=== PATIENT | female | born 1990 | race Caucasian/White ===

== ENCOUNTER 2020-06-03 13:27 | Inpatient (IN) | payer OTHER, SELFPAY ==
[2020-06-03 13:29] VITALS: BP 115/71; PULSE 79; RESP 18; TEMP 36.8; O2SAT 97; BMI 24.0
--- NOTE | 2020-06-03 13:47 | ED.VIS.GEN ---
History of Present Illness Chief Complaint: Mental Health Informant: Patient, Family Narrative: Patient presenting wanting detox from fentanyl. She uses it daily, snorts it, no IV drug use. In the mornings, when she has been without the drug, she experiences fairly severe withdrawal symptoms, nausea, vomiting, diarrhea, abdominal cramping, yawning. She last used about an hour ago and so does not feel the symptoms now, but she states she feels anxious and very nervous about detox, though she does indeed want it. She made a comment about wanting to on the way here according to the family member that accompanies her, however they both agree that she is not suicidal, she is not been having thoughts of suicide, and states that she said that because she has been very stressed and is nervous about this, but does not want to . She states that she started taking Percocet after a , and became addicted to them. She was on Suboxone for period of time, she stopped taking it, which is what made her relapse into taking fentanyl which she has been doing daily for at least 2 or 3 months. No recent illness except for a minor nonproductive cough that she has had for about 3 weeks. - Past Medical History (1) Seizure disorder Status: Chronic Past Medical History - Allergies and Home Meds Allergies/Adverse Reactions: Allergies codeine phosphate [From Tylenol-Codeine #3] Allergy (Verified 06/03/20 13:29) Hives Primary Care Physician: Care Physician,No Primary [Primary Care Provider] - Lives: Alone Smoking Status: Never smoker Alcohol: Occasional - none recent Drugs: - - fentanyl. no IVDU. Review of Systems General: Denies: Chills, Fever, Sweats Eyes: Denies: Visual changes - bilaterally, Diplopia ENT: Denies: Rhinorrhea, Sore throat Cardiovascular: Denies: Chest pain, Palpitations Respiratory: Denies: Dyspnea, Cough, Dyspnea on exertion Gastrointestinal: Denies: Abdominal pain, Nausea, Vomiting, Diarrhea, Melena, Hematochezia Genitourinary: Denies: Dysuria, Hematuria, Frequency Musculoskeletal: Denies: Back pain, Extremity Pain Skin: Denies: Rash, Wounds Neurological: Denies: Headache, Weakness, Numbness Psych: Reports: Anxiety. Denies: Suicidal thoughts Physical Exam Vital Signs/Narrative: Vital Signs Temp Pulse Resp BP Pulse Ox 06/03/20 13:29 98.2 F 79 18 115/71 97 Inital Vital Signs reviewed: Yes General: Well nourished, Well developed, No Acute Distress Head: Normocephalic, Atraumatic Eyes: Perrl, EOMI ENT: Moist mucous membranes, No rhinorrhea Neck: Supple, Nontender Cardiovascular: Regular rate, Regular rhythm, No murmurs. Negative for: Tachycardia Respiratory: No distress, CTA bilaterally, Chest nontender Abdomen: Soft, Nontender, Nondistended, Normal bowel sounds Back: Nontender, Normal Inspection Extremities: Nontender, No edema Skin: Normal color, No rash, No Trauma Neurological: Alert, Oriented x3, Cranial nerves II-XII grossly intact, Normal Strength, Normal Sensation, Normal Gait Psychological: Normal affect, Tearful Diagnostic/Tx/Re-eval Laboratory Results 06/03/20 06/03/20 06/03/20 13:48 13:48 13:48 WBC 8.1 RBC 5.11 Hgb 15.3 H Hct 45.5 MCV 89.0 MCH 29.9 MCHC 33.6 RDW Std Deviation 41.2 RDW Coeff of Fredy 12.7 Plt Count 168 MPV 13.1 H Immature Gran % (Auto) 0.200 Neut % (Auto) 59.6 Lymph % (Auto) 30.4 [place] % (Auto) 7.8 Eos % (Auto) 1.5 Baso % (Auto) 0.5 Absolute Neuts (auto) 4.8 Absolute Lymphs (auto) 2.45 Nucleated RBC % 0 Sodium 138 Potassium 3.6 Chloride 104 Carbon Dioxide 26.0 Anion Gap 8 BUN 8 Creatinine 0.86 Estim Creat Clear Calc 76.34 Est GFR (MDRD) Af Amer 100 Est GFR (MDRD) Non-Af 83 BUN/Creatinine Ratio 9.3 L Glucose 183 H Calcium 9.4 Total Bilirubin 0.60 AST 11 L ALT 26 Alkaline Phosphatase 97 Total Protein 8.2 Albumin 4.1 Globulin 4.1 Albumin/Globulin Ratio 1.0 Urine Opiates Screen NEGATIVE Urine Methadone Screen NEGATIVE Ur Barbiturates Screen NEGATIVE Ur Phencyclidine Scrn NEGATIVE Ur Amphetamines Screen NEGATIVE U Methamphetamin-MDMA NEGATIVE U Benzodiazepines Scrn POSITIVE H Urine Cocaine Screen NEGATIVE U Cannabinoids Screen NEGATIVE Ur Drug Screen Comment - Medical Decision Making Work-up above. Discussed with hospitalist for admission for inpatient detox from opiates. Her toxicology shows benzodiazepines because she is prescribed alprazolam. She does not appear to be abusing that according to her history and that of her family member. ED Disposition - Plan for ED Patient: Disposition: Acute Care Hospital [facility] Diagnosis: Opiate dependence Referrals: Care Physician,No Primary [Primary Care Provider] -
[2020-06-03 14:15] LABS: Amphetamine Urine VISTA NEGATIVE (<1000 ng/mL); Barbiturate Urine VISTA NEGATIVE (< 200 ng/mL); Benzodiazepine Urine VISTA POSITIVE (< 200 ng/mL); Cocaine Urine VISTA NEGATIVE (< 300 ng/mL); Ecstacy Urine VISTA NEGATIVE (< 500 ng/mL); Methadone Urine VISTA NEGATIVE (< 300 ng/mL); PCP Urine VISTA NEGATIVE (< 25 ng/mL); THC Urine VISTA NEGATIVE (< 50 ng/mL); Vista UDS pH Range 7
[2020-06-03 14:16] LABS: Absolute Lymphocyte Count 2.45 X10^3/uL (0.83-4.51); Absolute Neutrophil Count 4.8 X10^3/uL (2.0-7.7); Basophil# 0.04 X10^3/uL; Basophil% 0.5 % (0-1); Eosinophil# 0.12 X10^3/uL; Eosinophils% 1.5 % (0-5); Hematocrit 45.5 % (37-47); Hemoglobin 15.3 g/dL (12.0-15.0); Lymphocyte # 2.45 X10^3/ul (4.0); Lymphocyte % 30.4 % (19-41); Mean Corp Hgb Conc 33.6 g/dL (32-36); Mean Corpuscular Hgb 29.9 pg (27.0-32.0); Mean Platelet Vol. 13.1 fl (6.2-12.0); Monocyte# 0.63 X10^3/uL; Monocyte% 7.8 % (0-10); NRBC Flagged by Analyzer 0 % (0-5); Neutrophil # 4.81 X10^3/uL (2.7-7.7); Neutrophil % 59.6 % (47-70); Platelet Count 168 K/mm3 (150-450); RBC Distribution Width CV 12.7 % (11.6-14.6); RBC Distribution Width SD 41.2 fl (35.1-43.9); Red Blood Count 5.11 M/mm3 (4.2-5.4); White Blood Count 8.1 K/mm3 (4.4-11.0)
[2020-06-03 14:20] LABS: AST(SGOT) 11 U/L (15-37); Alanine Aminotransfer ALT/SGPT 26 U/L (13-56); Albumin, Serum 4.1 g/dL (3.2-5.0); Alkaline Phosphatase 97 U/L (45-117); Anion Gap 8 (5-15); BUN 8 mg/dL (7-18); BUN/Creat Ratio 9.3 RATIO (10-20); Calcium,Total 9.4 mg/dL (8.5-10.1); Chloride 104 mmol/L (98-107); Creatinine, Serum 0.86 mg/dL (0.55-1.02); EST Glomerular Filtration Rate 83 mL/min (>60); Est Glom Filt Rate - Afr Amer 100 mL/min (>60); Estimated Creatinine Clearance 76.34 ml/min; Globulin 4.1 g/dL (2.2-4.2); Glucose 183 mg/dL (74-106); Potassium 3.6 mmol/L (3.5-5.1); Protein, Total 8.2 g/dL (6.4-8.2); Sodium Level 138 mmol/L (136-145)
[2020-06-03 14:28] LABS: Internal QC Validated? YES +Cl - CLEAR BKGD; Pregnancy, Serum, hCG Quali. NEGATIVE Negative
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
[2020-06-03 14:50] VITALS: BP 115/71; PULSE 79; RESP 18; TEMP 36.8; O2SAT 97
[2020-06-03 15:10] VITALS: BP 109/63; PULSE 55; RESP 18; TEMP 37.2; O2SAT 97; BMI 23.4
[2020-06-03 15:17] VITALS: BMI 23.4
[2020-06-03] MEDS: Lactated Ringers 1,000 ML 125 ML IV (15:27)
[2020-06-03] MEDS: cloNIDine HCl 0.1 MG Tablet PO (15:27)
--- NOTE | 2020-06-03 16:54 | CM.ED ---
Social Work Patient was admitted to acute unit prior to this social worker aide being able to complete brief assessment. Telephone call to [facility]Radha Lopez. Updated Radha on patient admission to [facility] program. Radha to see patient tomorrow. Santiago ROMO, GRACIELA
[2020-06-03] MEDS: ALPRAZolam 0.5 MG Tablet PO (16:58)
[2020-06-03] MEDS: Buprenorphine HCl 2 MG TAB.SUBL SL (18:25)
[2020-06-03] MEDS: hydrOXYzine PAM 25 MG Capsule 50 MG PO (19:15)
[2020-06-03] MEDS: Methocarbamol 750 MG Tablet 1500 MG PO (19:15)
[2020-06-03] MEDS: Dicyclomine 10 MG Capsule 20 MG PO (19:15)
[2020-06-03] MEDS: Ibuprofen 600 MG Tablet PO (20:01)
[2020-06-03] MEDS: Gabapentin 300 MG Capsule PO (20:01)
[2020-06-03 20:08] VITALS: BP 92/55; PULSE 67; RESP 20; TEMP 36.5; O2SAT 97
[2020-06-03] MEDS: traZODone 100 MG Tablet PO (20:15)
[2020-06-03 23:46] VITALS: BP 113/76; PULSE 89; RESP 16; TEMP 37; O2SAT 98
[2020-06-04] MEDS: hydrOXYzine PAM 25 MG Capsule 50 MG PO ×2 (02:43→18:10)
[2020-06-04] MEDS: Methocarbamol 750 MG Tablet 1500 MG PO ×3 (02:44→22:22)
[2020-06-04] MEDS: Buprenorphine HCl 2 MG TAB.SUBL SL ×3 (02:44→18:09)
[2020-06-04] MEDS: cloNIDine HCl 0.1 MG Tablet PO ×2 (02:46→22:22)
[2020-06-04 03:00] VITALS: BP 107/66; PULSE 54; RESP 18; TEMP 36.6; O2SAT 96
[2020-06-04 08:00] VITALS: BP 94/57; PULSE 63; RESP 16; TEMP 36.8; O2SAT 98
[2020-06-04 09:12] LABS: Hemoglobin A1c 5.7 % (3.8-5.6)
[2020-06-04] MEDS: Dicyclomine 10 MG Capsule 20 MG PO (09:32)
[2020-06-04] MEDS: ALPRAZolam 0.5 MG Tablet PO ×2 (09:32→22:22)
[2020-06-04] MEDS: Gabapentin 300 MG Capsule PO (09:32)
--- NOTE | 2020-06-04 11:16 | ADDICTION ---
This director of social media marketing met with patient in her room to conduct ASAM, MSE and DUDIT assessments and to complete discharge planning. Patient was alert and oriented x4 and presented with depressed mood and tearful affect. She shared that she has been using Fentanyl on a daily basis for a month and half and was using Percocet prior to Fentanyl use. She states that she administers this substance via insufflation. Patient refused residential recommendation. Patient amiable to Intensive Outpatient treatment at [facility] and is scheduled with this assembly instructions writer on 06/07/2020 at 8:45am to begin services. She is amiable to this recommendation. Hospitalist informed. This assembly instructions writer will fax completed assessments and discharge plan to [facility].
--- NOTE | 2020-06-04 12:09 | ADDICTION ---
This criminal justice social worker met with patient in her room to conduct ASAM, MSE and DUDIT assessments and to complete discharge planning. Patient was alert and oriented x4 and presented with depressed mood and congruent affect. She shared that she has been using Fentanyl on a daily basis. She states that she administers this substance via IV. She reports that she left [facility] program on 06/01/2020 to use because I felt sick. She reports motivation to reengage with [facility]. This medical writer will contact [facility] and submit a referral. She is scheduled for an individual session on 06/08/2020 to potentially admit into Residential Treatment or to work with counselor to identify other Residential options and complete referrals. This medical writer will fax completed assessments and discharge plan to [facility].
[2020-06-04] MEDS: Ibuprofen 600 MG Tablet PO (12:59)
[2020-06-04 15:00] VITALS: BP 114/71; PULSE 80; RESP 18; TEMP 36.9; O2SAT 98
[2020-06-04] MEDS: Acetaminophen/Butalbital/Caffe 1 Tablet PO ×2 (15:23→22:21)
--- NOTE | 2020-06-04 16:36 | PCM.PROGNOTE ---
Patient Problems: Active and Suspected Problems Opiate dependence (Acute) Subjective: Patient was seen and examined today, she was admitted for opiate withdrawal, patient tells me that she has a prescription for Subutex at home and has had it filled, she sees an outside doctor for this prescription. Patient was seen by the social studies department chair for 180 today, she will be set up for follow-up outpatient visits there after she is discharged. Patient has no complaints of any tremor, muscle pain, or nausea and vomiting today. - Physical Exam Vitals/I&O's: Vital Signs Temp Pulse Resp BP Pulse Ox 98.4 F 80 18 114/71 98 06/04/20 15:00 06/04/20 15:00 06/04/20 15:00 06/04/20 15:00 06/04/20 15:00 Oxygen Delivery Method Room Air Weight: 58.105 kg Body Mass Index (BMI) 23.4 Intake and Output for Last 24 Hours 06/02/20 06/03/20 06/04/20 23:59 23:59 23:59 Intake Total 1299 / 20990 / 0 Balance 1299 / 2099 1849 / 0 General: Alert, Oriented x3, Cooperative HEENT: Atraumatic, PERRLA, EOMI, Normocephalic Oral: Moist Mucosa Neck: Supple, No JVD, Negative Carotid Bruits Lungs: Clear to auscultation, Normal air movement, No rhonchi, No wheeze, No rales Cardiovascular: Regular rate, Regular Rhythm, Normal S1, Normal S2, No murmurs, PMI Normal, No rub noted, No Gallop Abdomen: Bowel Sounds Present, Soft, Non Tender, Non-Distended Extremities: No clubbing, No cyanosis, No edema, Capillary Refill Less than 3 Seconds Skin: No rashes, No breakdown Musculoskeletal: No Tenderness to Palpation of Joints or Extremities Neurological: Cranial nerves II-XII grossly intact, Neuro grossly intact, Sensory exam intact to light touch and pain, Coordination normal Psych/Mental Status: Normal Affect, Appropriate, Alert and oriented to time, place, person, mood and affect Laboratory Results 06/03/20 13:48: Hemoglobin A1c 5.7 H Current Medications Acetaminophen (Tylenol) 500 mg PO Q4H PRN PRN PRN Reason: Temp > 100.4 F Acetaminophen/Butalbital/Caffeine (Fioricet) 1 tablet PO Q4H PRN PRN PRN Reason: migrains Last Admin: 06/04/20 15:23 Dose: 1 tablet Documented by: Al Hydroxide/Mg Hydroxide (Mylanta Ii) 30 ml PO Q6H PRN PRN PRN Reason: dyspesia Alprazolam (Xanax) 0.5 mg PO BID PRN PRN PRN Reason: ANXIETY Last Admin: 06/04/20 09:32 Dose: 0.5 mg Documented by: Bisacodyl (Dulcolax) 10 mg RECTAL DAILY PRN PRN Reason: Constipation Buprenorphine HCl (Buprenorphine Hcl) 4 mg SL Q8H JOY; Taper Stop: 06/06/20 17:59 Last Admin: 06/04/20 10:01 Dose: 4 mg Documented by: Clonidine (Catapres) 0.1 mg PO Q8H PRN PRN PRN Reason: RESTLESSNESS Last Admin: 06/04/20 02:46 Dose: 0.1 mg Documented by: Dicyclomine HCl (Bentyl) 20 mg PO Q6H PRN PRN PRN Reason: Abdominal Discomfort Last Admin: 06/04/20 09:32 Dose: 20 mg Documented by: Gabapentin (Neurontin) 300 mg PO Q8H PRN PRN PRN Reason: moderate to severe anxiety Last Admin: 06/04/20 09:32 Dose: 300 mg Documented by: Hydroxyzine Pamoate (Vistaril Pamoate Capsule) 50 mg PO Q6H PRN PRN PRN Reason: mild anxiety Last Admin: 06/04/20 02:43 Dose: 50 mg Documented by: Ibuprofen (Motrin) 600 mg PO Q8H PRN PRN PRN Reason: Pain Score 1-10/10 Last Admin: 06/04/20 12:59 Dose: 600 mg Documented by: Loperamide HCl (Imodium) 2 mg PO Q4H PRN PRN PRN Reason: LOOSE STOOLS Methocarbamol (Methocarbamol) 1,500 mg PO Q6H PRN PRN PRN Reason: MUSCLE SPASM Last Admin: 06/04/20 09:32 Dose: 1,500 mg Documented by: Nicotine (Nicoderm Cq (Pbkc)) 21 mg TRANSDERM. DAILY JOY Last Admin: 06/04/20 09:32 Dose: 21 mg Documented by: Ondansetron HCl (Zofran) 8 mg PO Q8H PRN PRN PRN Reason: NAUSEA Senna (Senokot) 2 tablet PO QHS PRN PRN Reason: Constipation Sodium Chloride () 10 - 40 ml IV UD PRN PRN Reason: SALINE FLUSH Trazodone HCl (Desyrel) 100 mg PO QHS PRN PRN PRN Reason: INSOMNIA Last Admin: 06/03/20 20:15 Dose: 100 mg Documented by: Medical Necessity - Tobacco Use Smoking Status: Current every day smoker Tobacco Use: Vapor Assessment/Plan All Active Problems Opiate dependence (Acute) #1 acute opiate withdrawal-continue present medication #2 chronic opiate addiction #3 seizure disorder-patient is on no medication #4 history of hepatitis C #5 chronic anxiety disorder Inpatient E&M: [id number] [facility] Hosp L2
[2020-06-04 22:16] VITALS: BP 116/65; PULSE 55; RESP 17; TEMP 36.6; O2SAT 95
[2020-06-04] MEDS: traZODone 100 MG Tablet PO (22:22)
[2020-06-04] MEDS: Ondansetron 8 MG Tablet PO (22:40)
[2020-06-05] MEDS: Gabapentin 300 MG Capsule PO (02:11)
[2020-06-05] MEDS: Buprenorphine HCl 2 MG TAB.SUBL SL ×2 (02:12→10:32)
[2020-06-05 02:15] VITALS: BP 114/65; PULSE 72; RESP 17; TEMP 36.8; O2SAT 96
--- NOTE | 2020-06-05 09:38 | DCINST_ITS ---
- Discharge Diagnoses Current Active Problems: Current Active and Chronic Problems Opiate dependence (Acute) You will use the following diet at home:: No restrictions Your food should be the consistency of: Regular Your liquids should be the consistency of: Regular/Thin Discharge Activity: Return to Normal Activity Weight Bearing Status: Full weight bearing Allergies/Adverse Reactions: Allergies codeine phosphate [From Tylenol-Codeine #3] Allergy (Verified 06/03/20 13:29) Hives Medications to take at Discharge ALPRAZolam [Xanax] 0.5 mg PO BID 06/03/20 Buprenorphine HCl 2 mg SL Q8H #0 tab.subl 06/05/20 Primary Care Physician: Care Physician,No Primary [Primary Care Provider] - Test Results: Test results from this visit will be discussed in further detail at your follow- up appointment, if applicable. Please Follow Up With: 180 on Sunday as scheduled
[2020-06-05 10:30] VITALS: BP 127/62; PULSE 71; RESP 16; TEMP 37.1; O2SAT 96
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
--- NOTE | 2020-06-05 11:52 | DS.PCM_ITS ---
Discharge Date and Diagnosis - Problem List Patient Problems: Active and Suspected Problems Opiate dependence (Acute) Date of Admission: 06/03/20 Date of Discharge: 06/05/20 - Primary Discharge Diagnosis Acute Problems: Active Problems #1 acute opiate withdrawal-patient appears stable for discharge home #2 chronic opiate addiction #3 seizure disorder #4 chronic anxiety disorder - Secondary Discharge Diagnosis Chronic Problems: Chronic Problems Seizure disorder (Chronic) Hospital Course and Treatment Operations: None Procedures: None Summary of Care Provided: The patient is a 29 year old F who was seen in the emergency room at [facility] requesting detox services for opiate addiction. Patient's tox screen was only positive for benzodiazepines-she takes Xanax at home for a chronic anxiety disorder. Patient was admitted to [place] [id number] and opiate withd javier order sets were entered on the patient, she talked to 180 and arrange for outpatient follow-up for detox services. Patient revealed that she has Subutex at home that she got from a powder coat painter-this had been prescribed recently for her. On 06/05/2020, patient was seen and examined: On examination she appeared in good health and spirits, she does not appear to be in any distress. Vital signs as documented. Skin warm and dry and without overt rashes. Neck without JVD, thyroid appears normal, trachea is midline, neck is supple. Lungs clear, normal air movement was noted. Heart exam notable for regular rhythm, normal sounds and absence of murmurs, rubs or gallops. Abdomen unremarkable and without evidence of organomegaly, masses, or abdominal aortic enlargement, bowel sounds are present in all 4 quadrants, no abdominal tenderness was noted. Extremities nonedematous, no cyanosis was noted, no clubbing was noted. Neuro: Cranial nerves II through XII are grossly intact, no focal motor deficits were noted, sensation to light touch and pinprick is intact, motor exam 5/5 throughout. Psych: Patient is alert and oriented x3, she does not appear anxious or depressed, she does not appear agitated. Patient appears stable for discharge home on 06/05/2020, she was to continue her home Subutex at one 3 times a day until her follow-up with 180 early next week. Patient Problems: Active and Suspected Problems Opiate dependence (Acute) - Physical Exam Vitals/I&O's: Vital Signs Temp Pulse Resp BP Pulse Ox 98.7 F 71 16 127/62 H 96 06/05/20 10:30 06/05/20 10:30 06/05/20 10:30 06/05/20 10:30 06/05/20 10:30 Oxygen Delivery Method Room Air Weight: 58.105 kg Body Mass Index (BMI) 23.4 Intake and Output for Last 24 Hours 06/03/20 06/04/20 06/05/20 23:59 23:59 23:59 Intake Total 1300 / 2100 2350 / 2350 540 / 540 Balance 1300 / 2100 2350 / 2350 540 / 540 Current Medications Acetaminophen (Tylenol) 500 mg PO Q4H PRN PRN PRN Reason: Temp > 100.4 F Acetaminophen/Butalbital/Caffeine (Fioricet) 1 tablet PO Q4H PRN PRN PRN Reason: migrains Last Admin: 06/04/20 22:21 Dose: 1 tablet Documented by: Al Hydroxide/Mg Hydroxide (Mylanta Ii) 30 ml PO Q6H PRN PRN PRN Reason: dyspesia Alprazolam (Xanax) 0.5 mg PO BID PRN PRN PRN Reason: ANXIETY Last Admin: 06/04/20 22:22 Dose: 0.5 mg Documented by: Bisacodyl (Dulcolax) 10 mg RECTAL DAILY PRN PRN Reason: Constipation Buprenorphine HCl (Buprenorphine Hcl) 2 mg SL Q8H JOY; Taper Stop: 06/06/20 17:59 Last Admin: 06/05/20 10:32 Dose: 2 mg Documented by: Clonidine (Catapres) 0.1 mg PO Q8H PRN PRN PRN Reason: RESTLESSNESS Last Admin: 06/04/20 22:22 Dose: 0.1 mg Documented by: Dicyclomine HCl (Bentyl) 20 mg PO Q6H PRN PRN PRN Reason: Abdominal Discomfort Last Admin: 06/04/20 09:32 Dose: 20 mg Documented by: Gabapentin (Neurontin) 300 mg PO Q8H PRN PRN PRN Reason: moderate to severe anxiety Last Admin: 06/05/20 02:11 Dose: 300 mg Documented by: Hydroxyzine Pamoate (Vistaril Pamoate Capsule) 50 mg PO Q6H PRN PRN PRN Reason: mild anxiety Last Admin: 06/04/20 18:10 Dose: 50 mg Documented by: Ibuprofen (Motrin) 600 mg PO Q8H PRN PRN PRN Reason: Pain Score 1-10/10 Last Admin: 06/04/20 12:59 Dose: 600 mg Documented by: Loperamide HCl (Imodium) 2 mg PO Q4H PRN PRN PRN Reason: LOOSE STOOLS Methocarbamol (Methocarbamol) 1,500 mg PO Q6H PRN PRN PRN Reason: MUSCLE SPASM Last Admin: 06/04/20 22:22 Dose: 1,500 mg Documented by: Nicotine (Nicoderm Cq (Pbkc)) 21 mg TRANSDERM. DAILY JOY Last Admin: 06/05/20 10:32 Dose: Not Given Documented by: Ondansetron HCl (Zofran) 8 mg PO Q8H PRN PRN PRN Reason: NAUSEA Last Admin: 06/04/20 22:40 Dose: 8 mg Documented by: Senna (Senokot) 2 tablet PO QHS PRN PRN Reason: Constipation Sodium Chloride () 10 - 40 ml IV UD PRN PRN Reason: SALINE FLUSH Trazodone HCl (Desyrel) 100 mg PO QHS PRN PRN PRN Reason: INSOMNIA Last Admin: 06/04/20 22:22 Dose: 100 mg Documented by: Discharge Activity: Return to Normal Activity Weight Bearing Status: Full weight bearing Home Medications: Medications to take at Discharge ALPRAZolam [Xanax] 0.5 mg PO BID 06/03/20 Buprenorphine HCl 2 mg SL Q8H #0 tab.subl 06/05/20 Primary Care Physician: Care Physician,No Primary [Primary Care Provider] - Please Follow Up With: 180 on Sunday as scheduled Disposition: Home Minutes spent on discharge:: 31 Patient Condition:: Stable Medical Necessity - Tobacco Use Smoking Status: Current every day smoker Tobacco Use: Vapor Meaningful Use Info Meaningful Use Diagnoses (Choose all that apply): None applicable Inpatient E&M: 87609 Disch Hosp
--- NOTE | 2020-06-05 13:01 | NURSING ---
original plan was for pt to go to her father's house on [place] as her mother currently was granted custody of pt children and so pt could not stay at her home. when mother, Terese, was called with [place] update, she called pt father and apparently he stated he was not able to let pt stay with him. Dr Moore was notified and agreed that pt could stay until Sunday if necessary to set up inpatient treatment with [facility]. pt spoke with her father and he then agreed that she could stay with him, notified and discharge order placed again. pt and mother verbalize understanding with DC plan.
== END 2020-06-05 13:12 | disposition home or self-care (01) | DRG 897 ==
LOC: ED 14:36 → MS3 06-04 07:10
PROVIDERS: Admitting Provider Internal Medicine; Emergency Provider Emergency Medicine; Visit Provider Internal Medicine
DX: F11.23 Opioid dependence with withdrawal (principal); G40.409 Other generalized epilepsy and epileptic syndromes, not intractable, without status epilepticus; F41.9 Anxiety disorder, unspecified; F32.9 Major depressive disorder, single episode, unspecified; B19.20 Unspecified viral hepatitis C without hepatic coma; F17.290 Nicotine dependence, other tobacco product, uncomplicated
CPT/HCPCS: 36415; 80053; 80307; 80320; 83036; 84703; 85025; 85610; 99283; 99406; J7120; G0480

== ENCOUNTER → 2020-09-02 13:19 | Outpatient (CLI) | payer MEDICAID, SELFPAY | PROVIDERS: PCP Nurse Practitioner; Referring Provider Nurse Practitioner; Visit Provider Nurse Practitioner | DX: R00.0 Tachycardia, unspecified (principal) | CPT/HCPCS: 93225; 93226 ==

== ENCOUNTER → 2020-09-03 15:06 | Outpatient (CLI) | payer MEDICAID, SELFPAY ==
--- NOTE | 2020-09-03 15:10 | ECHOD_ITS ---
Reason For Study: TACHYCARDIA Procedure This was a 2D Doppler, Color Flow transthoracic echocardiogram. The study was technically difficult. Exam performed in department. Left Ventricle Normal LV size. Left ventricular systolic function is normal. The estimated ejection fraction is 60 %. No evidence for diastolic dysfunction. No regional wall motion abnormalities noted. Right Ventricle Normal RV size. Normal systolic function. Atria Normal left atrium. Normal right atrium. No doppler evidence for ASD. Mitral Valve There is no mitral annular calcification. Normal mitral valve. Trivial mitral valve insufficiency. Tricuspid Valve Normal tricuspid valve. Trivial tricuspid valve insufficiency. Unable to estimate RV systolic pressure/pulmonary artery pressure due to technically difficult study. Aortic Valve The aortic valve is not well visualized. Pulmonic Valve The pulmonic valve is not well visualized. Trivial pulmonic valve insufficiency. Great Vessels Normal sized aortic root. Pericardium/Pleural No pericardial effusion. MMode/2D Measurements & Calculations LVIDd: 4.7 cm IVSd: 0.62 cm Ao root diam: 3.0 cm LVIDs: 3.2 cm LVPWd: 0.91 cm RVDd: 3.2 cm FS: 33.1 % LAV(MOD-bp): 20.9 ml LA A4 area: 9.5 cm2 LA dimension(2D): 2.6 cm LAV(MOD-bp) Indexed: 12.8 ml/m2 LAV(MOD-sp2): 25.2 ml LAV(MOD-sp4): 17.3 ml RA A4 area: 8.7 cm2 Doppler Measurements & Calculations MV E max salvador: 52.4 cm/sec Lat Peak E' [place]: 12.0 cm/sec Med Peak E' [place]: 10.4 cm/sec MV A max salvador: 66.1 cm/sec E/E' lat: 4.3 E/E' med: 5.0 MV E/A: 0.79 Ao V2 max: 103.8 cm/sec LV V1 max: 80.9 cm/sec PA V2 max: 93.6 cm/sec Ao max P.3 mmHg LV V1 max P.6 mmHg Interpretation Summary The study was technically difficult. Left ventricular systolic function is normal. The estimated ejection fraction is 60 %. Trivial mitral valve insufficiency. Trivial tricuspid valve insufficiency. Trivial pulmonic valve insufficiency. Unable to estimate RV systolic pressure/pulmonary artery pressure due to technically difficult study. No evidence for diastolic dysfunction. Ordering Physician: Ariane Gonzales Referring Physician: Ariane Gonzales Performed By: Ira Toussaint, ARMAND, RVT
== END ==
PROVIDERS: PCP Nurse Practitioner; Referring Provider Nurse Practitioner; Visit Provider Nurse Practitioner
DX: I34.0 Nonrheumatic mitral (valve) insufficiency (principal); R00.0 Tachycardia, unspecified
CPT/HCPCS: 93306

== ENCOUNTER 2021-01-08 18:29 | Emergency (ER) | payer OTHER, MEDICAID, SELFPAY ==
[2020-10-07 15:14] VITALS: BMI 23.4
[2021-01-08 18:30] VITALS: BP 147/90; PULSE 84; RESP 14; TEMP 36.5; O2SAT 99; BMI 24.2
--- NOTE | 2021-01-08 18:39 | EKG12_ITS ---
Test Reason : CP Blood Pressure : / mmHG Vent. Rate : 075 BPM Atrial Rate : 075 BPM P-R Int : 122 ms QRS Dur : 082 ms QT Int : 368 ms P-R-T Axes : 005 038 032 degrees QTc Int : 410 ms Normal sinus rhythm Normal ECG Confirmed by MATTHEW DAVIS, ED ([id number]), story editor ELEONORA MOSCOSO ([id number]) on 01/11/2021 8:55:00 AM Referred By: TUNG Confirmed By:ED CASTRO MD
--- NOTE | 2021-01-08 18:53 | ED.DCSUM_ITS ---
History of Present Illness Chief Complaint: Chest Pain Detail of Chief Complaint: Tightness/congestion with upper respiratory symptoms. Informant: Patient Onset: Today Context: Sudden Onset Timing: Continuous Quality: Chest tightness with congestion and shortness of breath and nasal congestio Location: Upper respiratory Current Severity: Mild Maximum Severity: Moderate Worsened by: Not worsened by activity or exertion Relieved by: Nothing Associated Symptoms: Denies fever or chills. No risk factors for VTE or history of. Narrative: Patient is a 30-year-old female who presents with chest congestion, shortness of breath and chest tightness. She denies history of asthma. She is a non-smoker. She denies exposure to Covid. She works at a nursing facility. She states she is tested twice a week and her tests have been negative. She denies loss of taste or smell. Denies headache. Denies photophobia. Denies neck pain or neck stiffness. She does report sore throat as well as nasal congestion. Her cough is minimal and nonproductive. There is no pleuritic chest pain. She denies leg pain, swelling discoloration. She denies nausea, vomiting diarrhea. She denies abdominal pain. She denies urologic symptoms. Prior similar symptoms: No Recent Illness/Hospitalization: No - Past Medical History (1) Opiate dependence Status: Acute (2) Sinus tachycardia Status: Acute (3) Seizure disorder Status: Chronic Past Medical History - Allergies and Home Meds Allergies/Adverse Reactions: Allergies codeine phosphate [From Tylenol-Codeine #3] Allergy (Verified 01/08/21 18:32) Hives Primary Care Physician: Ariane Gonzales DESIGN CELL ENGINEER, DESIGN CELL ENGINEER-C [Primary Care Provider] - Prior records reviewed: Yes Lives: Alone Smoking Status: Current every day smoker Alcohol: Rare Drugs: None Review of Systems General: Denies: Chills, Fever, Malaise, Sweats Eyes: Denies: Visual changes - bilaterally, Blurred Vision - bilaterally ENT: Reports: Bilateral ear pain, Sore throat. Denies: Rhinorrhea Cardiovascular: Reports: Chest pain, Heart racing. Denies: Palpitations Respiratory: Reports: Dyspnea, Cough. Denies: Sputum, Dyspnea on exertion, Orthopnea, Paroxysmal nocturnal dyspnea Gastrointestinal: Denies: Abdominal pain, Nausea, Vomiting, Diarrhea, Melena, Hematochezia Genitourinary: Denies: Dysuria, Hematuria, Frequency Musculoskeletal: Denies: Myalgias, Arthralgias, Neck pain, Back pain, Swelling, Extremity Pain, -, - Neurological: Denies: Headache, Numbness Psych: Denies: Depression, Anxiety Allergy: Denies: Uticaria Physical Exam Vital Signs/Narrative: Vital Signs Temp Pulse Resp BP Pulse Ox 01/08/21 18:30 97.7 F L 84 14 147/90 H 99 Inital Vital Signs reviewed: Yes General: Well nourished, Well developed, No Acute Distress Head: Normocephalic, Atraumatic Eyes: Perrl, EOMI. Negative for: Pale conjunctiva, Scleral icterus ENT: Moist mucous membranes, Nasal congestion. Negative for: Sinus tenderness Neck: Supple, Nontender, No lymphadenopathy, No JVD, - - Andi is midline. There is no inspiratory expiratory stridor. There is no evidence of angioedema. Cardiovascular: Regular rate, Regular rhythm, No murmurs, Normal S1, Normal S2 Respiratory: No distress, CTA bilaterally, Chest nontender Abdomen: Soft, Nontender, Nondistended, Normal bowel sounds Back: Nontender, Normal Inspection Extremities: Nontender, No edema, - - There is no asymmetry, swelling, discolo ration, leg vein distention, palpable cords or tenderness along the distribution of the deep venous system. Skin: Normal color, No rash Neurological: Alert, Oriented x3, Cranial nerves II-XII grossly intact, Normal Strength, Normal Sensation Psychological: Normal affect Diagnostic/Tx/Re-eval Chest X-Ray - ED: 2 View, Read by ED Physician, Normal, Heart, Lungs, Mediastinum, Bony Structures, No Acute Disease, - - Nipple piercings noted. Chest x-ray was interpreted by me at 1900. - Rhythm Strip Rhythm Strip: Sinus Rhythm Rate: 77 Ectopy: None - EKG Initial EKG Interpretation: Sinus Rhythm - Rate of 75. EKG is normal. EKG findings were noted under the medical decision portion of the chart. - Medical Decision Making Is PERC negative. EKG revealed a normal sinus rhythm no evidence of 75. TN interval is 122 ms. QS duration 82 ms. QT duration 368 ms. [place] is normal. Chest x-ray is obtained to rule out pneumonia. ED Disposition - Plan for ED Patient: Disposition: Home or Assisted Living Diagnosis: Non-cardiac chest pain, Upper respiratory infection with cough and congestion Instructions: ED Chest Pain, Noncardiac, ED URI, Viral, No Abx (Adult) Prescriptions: Albuterol Inhaler [Ventolin Hfa] 2 puff INHALATION Q4H PRN PRN #1 inhaler PRN Reason: Wheezing Transmission Status: Pending to [id number] Referrals: Ariane Gonzales DESIGN CELL ENGINEER, DESIGN CELL ENGINEER-C [Primary Care Provider] - 3-5 Days if not improving
--- NOTE | 2021-01-08 18:54 | RAD_ITS ---
STUDY: X-RAY CHEST REASON FOR EXAM: Female, 30 years old. Chest pain TECHNIQUE: Frontal and lateral views of the chest COMPARISON: None. FINDINGS: The lungs are clear. There are no pleural effusions. There is no pneumothorax. The heart is normal in size. The visualized osseous structures are within normal limits. RAD/Chest PA and Lateral IMPRESSION: No acute thoracic pathology. Electronically Signed: Jayson Acevedo MD at 19:10 EDT Tel , Service support ,
== END 2021-01-08 19:29 | disposition home or self-care (01) ==
PROVIDERS: Emergency Provider Emergency Medicine; PCP Nurse Practitioner
DX: J06.9 Acute upper respiratory infection, unspecified (principal); R07.89 Other chest pain; F17.200 Nicotine dependence, unspecified, uncomplicated
CPT/HCPCS: 71046; 93005; 99283